=== PATIENT | male | born 1985 | race Caucasian/White ===

== ENCOUNTER 2022-01-17 20:07 | Emergency (ER) | payer BC, SELFPAY ==
[2022-01-17] VITALS (19 sets, daily range): BP systolic 110–136; BP diastolic 56–83; PULSE 88–108; RESP 18; TEMP 37; O2SAT 94–99
--- NOTE | 2022-01-17 20:15 | RT.EKG_ITS ---
APPROVED REPORT Exam: Resting ECG Reason for Exam: Epigastric pain Patient Location: E HR:104 bpm ECG Measurements Heart Rate 104 AXIS IL 140 P 17 QRSd 94 QRS -22 QT 320 T 50 QTc 422 Conclusion Sinus tachycardia...rate> 99
--- NOTE | 2022-01-17 20:23 | W.ED.GENAD ---
Discharge Plan Disposition Patient Disposition: HOME Condition: Improving Discharge Details Clinical Impression: Acute epigastric pain Primary Care Provider: Deanna Begum V ED Provider: Lionel Jackson Discharge Instructions Instructions: Abdominal Pain (ED) Additional Instructions: Home to rest tonight. May use the provided Zofran if needed for persistent nausea. Small, frequent fluids to maintain hydration. May slowly advance a bland diet. Avoid fatty, fried, spicy, tomato-based foods. Return if you develop a fever, worsening pain, or any other acute concerns. Medical Decision Making 36-year-old male states he has a history of previous pancreatitis. He presents today with 1 day of burning epigastric pain that is constant associated with nausea is intolerant of p.o. He has had some episodes of emesis. He is not had a fever. He does drink mildly denies any recent binging. Patient arrives with a slight tachycardia but afebrile and normotensive. He is tender in the epigastrium but does not demonstrate rebound or guarding. His differential diagnosis includes pancreatitis, gastritis, must exclude atypical PA. Patient had IVF established, placed on a monitoring and evaluation advisor, screening laboratories and EKG obtained. Patient given Zofran, acetaminophen, fluid and Protonix. Laboratories reveal a white count of 6.9, hematocrit 46, platelets 186. Electrolytes unremarkable, BUN 19, creatinine 0.9. Total bili 0.8, LFTs otherwise unremarkable, lipase negative at [address] and troponin is negative. CT images obtained without evidence of acute abdominal pelvic pathology. See formal report. Discussed with patient reassuring findings on laboratory and imaging. Will offer Zofran for home. Discussed indications to seek reevaluation. HPI General Mode of arrival: ambulatory. Date/Time Provider Initiated Documentation: 01/17/22 20:09. Limitations to Documentation: no limitations. Information obtained by: patient. History of Present Illness 36 year old M presents to the emergency department with the chief complaint of Epigastric pain that began yesterday, described as moderate and similar to prior episodes, Quality is described as dull and constant, and is localized to the abdomen. Patient reports no radiation. Patient started experiencing this hour(s) and it has been constant. improves with No relieving factors improve symptom(s), No exacerbating factors reported . Patient notes loss of appetite and nausea/vomiting. Patient did receive the following treatments prior to arrival, none General Stated Complaint: Abd Prob PARK: 3 Review of Systems Narrative: No fever. Denies chest pain. Mild daily alcohol use that is unchanged. 8 systems were reviewed and otherwise negative PFSH All Active Problems (Updated 01/17/22 @ 22:37 by Lionel Jackson MD) Acute epigastric pain (Acute) Social History Smoking/Tobacco Use Status: Never Smoking risk assessment performed?: Yes Alcohol Intake: current Alcohol Intake frequency: a few times a week Drug use: Never Substance use type: does not use Do you feel safe at home: Yes Do you feel safe in your relationship?: Yes Exam Narrative Exam Narrative: GEN: awake, alert, oriented 3. Pleasant, well groomed, interactive. HEAD: Normocephalic, atraumatic ENT: Mucous membranes dry, oropharynx unremarkable, External ear exam unremarkable EYES: PERRL, EOMI NECK: Full ROM, no WILBERTO, no menigismus CHEST/RESP: Nontender, clear to auscultation bilateral, no wheeze/rhonchi/rales CARDIOVASCULAR: Regular and tachycardic, no murmur, rub neisha. 2+ Rad pulse bilateral ABDOMEN: Soft, tender in the epigastrium without relief rebound or guarding no mass. +Bowel sounds EXT: Full ROM, no edema, no rash Neuro: Grossly normal neurologic exam, conversant, interactive. Psych: Speech fluent, thoughts congruent, affect normal Course Vital Signs Vital signs: Vital Signs Temperature 37 C 01/17/22 20:11 Pulse 108 H 01/17/22 20:11 Respiratory Rate 18 01/17/22 20:11 Blood Pressure 123/82 01/17/22 20:11 Pulse Oximetry 99 01/17/22 20:11 Temperature 37 C 01/17/22 20:11 Temperature Source Oral 01/17/22 20:11 Pulse 108 H 01/17/22 20:11 Respiratory Rate 18 01/17/22 20:11 Respiratory Effort 01/17/22 20:15 Blood Pressure 123/82 01/17/22 20:11 Blood Pressure Position Supine 01/17/22 20:11 Pulse Oximetry 99 01/17/22 20:11 Oxygen Delivery Method Room Air 01/17/22 20:11 Oxygen Flow Rate 0 01/17/22 20:11 Pain Level 5 01/17/22 20:11 PAWSS Have you Been Recently Intoxicated or Drunk Within the Last 30 days?: No Have you Ever Experienced Previous Episodes of Alcohol Withdrawal?: No Have you ever Experienced Withdrawal Seizures?: No Have you ever Experienced Delirium Tremens(DT)s?: No Have you ever undergone Alcohol Rehabilitation Treatment (i.e, inpt ot outpatient treatment programs)?: No Have you ever Experienced Blackouts?: No Have you ever Combined Alcohol with other Downers within the last 90 days?: No Have you ever Combined Alcohol with any other Substance of Abuse during the last 90 days?: No Positive Blood Alcohol level on Presentation? [PCS.BAL]: No Evidence of Increased Autonomic Activity (i.e. HR>120, tremor, sweating, agitation, nausea)?: No Result: 0
[2022-01-17 20:34] LABS: Abs Immature Grans 0.02 10^3/uL (0.0-0.06); Absolute Basophil Count 0.02 10^3/uL (0.0-0.2); Absolute Eosinophil Count 0.01 10^3/uL (0.0-0.7); Absolute Lymphocyte Count 0.55 10^3/uL (1.2-3.4); Absolute Monocyte Count 0.53 10^3/uL (0.1-0.8); Absolute Neutrophil Count 5.78 10^3/uL (1.2-6.7); Basophils % 0.3; Eosinophils % 0.1; HGB 15.8 g/dL (13.5-17.5); Immature Grans % 0.3; MCHC 34.3 % (32.0-36.0); MCV 90.2 fL (80-95); MPV 10.3 fL (8.0-11.0); Monocytes % 7.7; Neutrophils % 83.6; Nucleated RBC 0 %; Platelet Count 186 10^3/uL (130-400); RDW 12.3 % (11.8-14.1); RDW-SD 40.4 fL; WBC 6.91 10^3/uL (4.4-10.8)
[2022-01-17] MEDS: Normal Saline 1,000 ML 1000 ML IV (20:49)
[2022-01-17] MEDS: ACETAMINOPHEN 1,000 MG/100 ML BTL 400 MG IVPB (20:49)
[2022-01-17] MEDS: Pantoprazole 40 MG VIAL IVP (20:49)
[2022-01-17] MEDS: Ondansetron 4 MG/2 ML VIAL IVP (20:49)
--- NOTE | 2022-01-17 21:00 | DI.CT_ITS ---
Exam(s) CT ABDOMEN PELVIS W EXAM: CT ABDOMEN PELVIS W CLINICAL HISTORY: epigastric pain, vomiting TECHNIQUE: Imaging Protocol: Axial computed tomography images with coronal and sagittal reformatted images were created and reviewed CONTRAST MATERIAL: Intravenous: Omnipaque 350 Contrast volume:100 mL Oral: No COMPARISON: CT RENAL COLIC WO CONTRAST from 10/15/2008 FINDINGS: ABDOMEN: Lung Bases: Normal where visualized. Liver: Normal density. No measurable mass. Mild hepatomegaly with the liver measuring 19 cm. Portal, Superior Mesenteric, and Splenic Veins: Unremarkable. Gallbladder and Biliary Tract: No radiodense calculus or dilation. Pancreas: Normal density, no abnormal calcifications or inflammatory process. Spleen: Normal. Adrenals: No masses seen. Kidneys: Normal size, contour and axis. There is a 2 mm nonobstructing stone in the midpole of the le ft kidney. No masses seen. Abdominal Aorta: Abdominal portion non-dilated. Bowel: No obstruction or bowel wall thickening. Appendix is unremarkable. Peritoneal Cavity: No ascites, collection or mesenteric inflammatory response. No free air. Lymph Nodes: Within normal limits. Bones: Within normal limits for the patient's age. Soft Tissues: Unremarkable. PELVIS: Bladder: Symmetric distention, no gross wall thickening. Reproductive Organs: There is mild enlargement of the prostate gland. Lymph Nodes: Within normal limits. Bones: Within normal limits for the patient's age. IMPRESSION: No acute abdominal or pelvic process. RADIATION DOSE DELIVERED: 956.24mGy.cm Total DLP DATA REPOSITORY: All CT scans at this facility are submitted to the National Radiology Data Registry (NRDR) Dose Index Registry (DIR) with the [employer] (A[employer]). RADIATION OPTIMIZATION: All CT scans at this facility use at least one of these dose optimization te chniques: automated exposure control; mA and/or kV adjustment per patient size (includes targeted exa ms where dose is matched to clinical indication); or iterative reconstruction.
[2022-01-17 21:03] LABS: ALT 51 U/L (16-63); AST 18 U/L (15-37); Albumin 3.9 g/dL (3.4-5.0); Alkaline Phosphatase 99 U/L (46-116); Anion Gap 10.8 mmol/L (3-11); BUN 19 mg/dL (7-18); Bilirubin, Total 0.8 mg/dL (0.2-1.0); CO2 26.2 mmol/L (21.0-32.0); CREATININE 0.9 mg/dL (0.70-1.30); Calcium 8.8 mg/dL (8.5-10.1); Chloride 101 mmol/L (98-107); Glucose 109 mg/dL (74-106); Lipase 62 U/L (73-393); Magnesium 1.6 mg/dL (1.8-2.4); Potassium 3.5 mmol/L (3.5-5.1); Sodium 138 mmol/L (136-145); Total Protein 7.6 g/dL (6.4-8.2); Troponin I < 50 ng/L (<or=60)
[2022-01-17 21:33] LABS: Bilirubin Small (Negative); Blood Trace-intact (Negative); Clarity Clear (Clear); Glucose Negative (Negative); Ketones >=160 mg/dL (Negative); Leukocyte Esterase Negative (Negative); Nitrite Negative (Negative); Specific Gravity >= 1.030 (1.005-1.025); Urobilinogen 0.2 EU/dL (Up TO 0.2)
[2022-01-17] MEDS: Omnipaque 350 MG/ML 100 ML BTL IJ (22:02)
[2022-01-17] MEDS: Normal Saline Flush 10 ML SYR IVP (22:08)
[2022-01-17 22:14] LABS: Bacteria Negative HPF (Negative); C & S Indicated? No; Crystals Negative HPF (Negative); Epithelial Cells Negative HPF (Negative); Mucus Heavy (Negative); RBC 0-2 HPF (0-2); WBC Negative HPF (0-5)
--- NOTE | 2022-01-17 22:34 | DI.VRAD_ITS ---
PROCEDURE INFORMATION: Exam: CT Abdomen And Pelvis With Contrast Exam date and time: 01/17/2022 9:58 PM Age: 36 years old Clinical indication: Nausea and vomiting; Abdominal pain; Patient HX: Epigastric pain, vomiting TECHNIQUE: Imaging protocol: Computed tomography of the abdomen and pelvis with contrast. Radiation optimization: All CT scans at this facility use at least one of these dose optimization techniques: automated exposure control; mA and/or kV adjustment per patient size (includes targeted exams where dose is matched to clinical indication); or iterative reconstruction. Contrast material: OMNIPAQUE 350; Contrast volume: 100 ml; Contrast route: INTRAVENOUS (IV); COMPARISON: No relevant prior studies available. FINDINGS: Lungs: Lung bases are clear. Liver: There is enlargement of the liver, measuring 20 cm. There is a diffuse decrease in hepatic parenchymal density, consistent with fatty infiltration. The liver is otherwise unremarkable. Gallbladder and bile ducts: Normal. No calcified stones. No ductal dilation. Pancreas: There is diffuse, benign fatty infiltration of the pancreas. The pancreas is otherwise unremarkable. Spleen: Normal. No splenomegaly. Adrenal glands: Normal. No mass. Kidneys and ureters: Normal. No hydronephrosis. Stomach and bowel: No bowel obstruction or significant bowel wall thickening. There is mildly excessive colonic stool content. Appendix: A normal appendix is identified. Intraperitoneal space: No free fluid, fluid collections, or pneumoperitoneum. Arteries: Unremarkable. No abdominal aortic aneurysm. Lymph nodes: No retroperitoneal, pelvic, or mesenteric adenopathy. Urinary bladder: The bladder is decompressed. Reproductive: The prostate demonstrates moderate nonspecific enlargement. The seminal vesicles are normal. Prostate volume is 64 cc. Bones/joints: Unremarkable. No acute fracture. Soft tissues: No acute body wall soft tissue findings. IMPRESSION: 1. No acute abdominopelvic pathology. 2. Incidental findings as above. Dictated and Authenticated by: Masoud Dominique MD. Ordering:HOWIE Flowers MD
== END 2022-01-17 22:49 | disposition home or self-care (01) ==
PROVIDERS: Emergency Provider Emergency Medicine; PCP Family Medicine
DX: R10.13 Epigastric pain (principal); R11.2 Nausea with vomiting, unspecified
CPT/HCPCS: 80053; 83690; 93005; 96361; 96365; 96366; 96375; 99285; 74177; 81003; 81015; 83605; 83735; 84484; 85025; 93010; 99284; J0131; J2405; J3490